=== PATIENT | male | born 1965 | race Caucasian/White ===

== ENCOUNTER 2017-01-06 18:19 | Inpatient (IN) | payer OTHER ==
[~2017-01-06] VITALS: Ht 170.2 cm; Wt 100.2 kg
--- NOTE | ~2017-01-06 | HC ---
[facility] [place] [address] CONSULTATION Name: ROMMEL STOCKTON Room #: 457-P [facility] [place] M.R.#: [id number] Admission: 01/06/17 Attend Phys: Wellington Clements MD Discharge: 01/09/17 Date of : 67 Report #: [id number] THIS REPORT FOR: //name// CC: PAXTON physician/PCP Wellington Clements PRIMARY CARE PHYSICIAN: None. REFERRAL PHYSICIAN: Leo Duarte M.D. REASON FOR REFERRAL: Pulmonary embolus, DVT. HISTORY OF PRESENT ILLNESS: The patient is a 51-year-old white male who presents to the Emergency Room with left leg pain, neck pain, and low back pain. Subsequent evaluation in the ER revealed pulmonary embolus along with pulmonary embolus along with DVT. A pulmonary consultation was requested. The patient states that he was diagnosed with DVT and pulmonary embolus about 4-5 years ago. He was treated at [facility]. This was not felt to be provoked. He states that he was given one year of anticoagulant therapy. About a year ago, he started to develop episodic bilateral lower extremity pain. About 6 months ago, he developed a swelling in his left leg. He did not seek medical evaluation. With his worsening symptoms, he presented to the ER on this occasion. The patient otherwise denies any recent long travels, trauma or surgery. He denies any family history of venothromboembolic disease. PAST MEDICAL HISTORY: Remarkable for diabetes mellitus type 2, hypertension, and alcohol abuse. PAST SURGICAL HISTORY: Includes cervical discectomy, carpal tunnel surgery on the right. ALLERGIES: None to medications. HOME MEDICATIONS: Include oxycodone, lisinopril, gabapentin, amlodipine, an additional list of medication according to the patient include Lovenox and warfarin. FAMILY HISTORY: Noncontributory. SOCIAL HISTORY: He drinks on a regular basis. He denies any tobacco use. [facility] [address] [place] [address] CONSULTATION Name: ROMMEL STOCKTON Room #: 457-P [facility] [place] [facility].#: [id number] Admission: 01/06/17 Attend Phys: Wellington Clements MD Discharge: 01/09/17 Date of : 67 Report #: [id number] REVIEW OF SYSTEMS: As mentioned above, otherwise 10-point system review negative. PHYSICAL EXAMINATION: GENERAL: He is awake, alert, in no distress. VITAL SIGNS: Temperature is 98.2 degrees Fahrenheit, pulse is 100, respiratory rate is 16, blood pressure 128/70 mmHg, saturation 97%. HEENT: Unremarkable. NECK: Supple without lymphadenopathy or thyromegaly. CHEST: Breath sounds are clear bilaterally without any rales or wheezes. CARDIOVASCULAR: Normal S1 and S2. There are no murmurs or gallop. There is no JVD. There is no carotid bruit. Pulses are 2+/4+ bilaterally. ABDOMEN: Soft, nontender, no organomegaly or masses felt. GENITOURINARY: Deferred. RECTAL: Deferred. EXTREMITIES: There is trace edema bilaterally, otherwise no cyanosis or clubbing. Leg Doppler ultrasound on the left leg revealed left femoral and popliteal DVT, urine drug screen was negative. CT chest angiogram shows small pulmonary embolus involving the right lower lobe area. Ultrasound on the right extremity was negative for DVT. MRI of the lower back reveals small central disk protrusion at the L4-L5 level with mild bilateral neural foraminal extension. MRI of the cervical spine shows fusion of the C5-C4 spine with degenerative changes below. Multilevel central canal stenosis and multilevel foraminal encroachment is noted. Sodium 133, potassium 2.3, chloride 92, CO2 is 34, BUN is 6, creatinine is normal. WBC 6700, platelets are normal. Albumin 2.4. IMPRESSION: 1. Pulmonary embolus involving the right lower lobe, left lower extremity DVT in this 51-year-old white male. According to the patient, he was diagnosed with PE and DVT about 4 years ago at [facility]. He denies any risk factors at this time. 2. Subacute bilateral lower extremity leg pain of undetermined etiology. I do not think it is related to DVT. 3. L4-L5 disk protrusion. 4. Hypertension. 5. Diabetes. RECOMMENDATION: Agree with anticoagulation. 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 Choice of oral anticoagulant can be either Coumadin or Pradaxa. [address] [address] CONSULTATION Name: MAHINROMMEL Christoph Room #: 457-P [facility] [place] M.R.#: [id number] Admission: 01/06/17 Attend Phys: Wellington Clements MD Discharge: 01/09/17 Date of : 67 Report #: [id number] Discussed with the patient the above findings and the rationale for treating his venothromboembolic disease. The patient voices understanding. Thank you for this consultation. <ELECTRONICALLY SIGNED> By: Brian Coy MD 01/10/17 1350 [id number] Brian Coy MD /nt
--- NOTE | ~2017-01-06 | EKG ---
[place] [address] [facility] [employer] [place] [address] ELECTROCARDIOGRAM REPORT Name: ROMMEL STOCKTON Christoph Room #: 457-P ADM IN M.R.#: [id number] Admission: 01/06/17 Attend Phys: Wellington Clements MD Discharge: Date of : 67 Report #: [id number] THIS REPORT FOR: //name// [facility] Test Date: 2017-01-06 Test Time: 22:34:38 Pat Name: ROMMEL STOCKTON Department: Room: 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 : 1965 Requested By: Suly Blair Order Number: [id number] MD: Darrell Nicole Measurements Intervals [place] Rate: 94 P: 14 FL: 136 QRS: 17 QRSD: 79 T: 31 QT: 434 QTc: 543 Interpretive Statements Sinus rhythm Nonspecific ST and T-wave abnormality Prolonged QT interval Baseline wander in lead(s) II,aVR Compared to ECG 07/16/2012 10:30:37 Nonspecific change in the ST and T-wave segments QT interval has lengthened Electronically Signed On 01-07-2017 8:05:12 CDT by Darrell Nicole [email or web address] <ELECTRONICALLY SIGNED> By: Darrell Nicole MD, [facility] 01/07/17 [id number] Darrell Nicole MD, [facility] /EPI
[~2017-01-06 18:19] MED LIST: ACETAMINOPHEN325 M1 PO; AMLODIPINE BESYL5 MG PO; COUMADIN 5 MG TA5 M1 PO; ENOXAPARIN100 MG/11 SUBQ; GABAPENTIN 100100 MG PO; GLUMETZA500 PO; LISINOPRIL10 MG PO; NOHOMEMEDICATIONS; ROXICODONE5 M1 PO
[2017-01-06 18:33] VITALS: BP 168/97
[2017-01-06 19:12] LABS: HEMATOCRIT 40.3 % (42.0-52.0); HEMOGLOBIN 14.7 gm/dL (14.0-18.0); MCH 40.1 pg (26.0-34.0); MCHC 36.4 g/dL (28.0-37.0); MCV 110.1 fL (80.0-100.0); PLATELET COUNT 132 thou/uL (150-400); RBC 3.66 mil/uL (4.50-6.00); RDW 16.3 % (10.5-14.5); WBC 6.6 thou/uL (4.0-11.0)
[2017-01-06 19:13] LABS: MANUAL DIFF YES
[2017-01-06 19:23] LABS: CALCIUM 8.1 mg/dL (8.5-10.1); CREATININE 1.1 mg/dL (0.7-1.3)
[2017-01-06 19:26] LABS: POTASSIUM 2.3 mmol/L (3.5-5.1)
[2017-01-06 19:48] LABS: ALBUMIN 3.2 g/dL (3.4-5.0); TOTAL PROTEIN 7.8 g/dL (6.4-8.2)
[2017-01-06 19:49] LABS: TOTAL CELL COUNT 100
[2017-01-06 19:50] LABS: ABSOLUTE NEUTROPHILS 4.5 thou/uL (1.4-8.2); ANISOCYTOSIS 1+; MACROCYTES 1+
[2017-01-06 20:12] LABS: URINE BILIRUBIN 3+ (Negative); URINE BLOOD 3+ (Negative); URINE COLOR BROWN; URINE GLUCOSE-RANDOM* 2+ (Negative); URINE KETONES 1+ (Negative); URINE LEUKOCYTES-REFLEX TRACE (Negative); URINE PROTEIN (DIPSTICK) 3+ (Negative); URINE SPECIFIC GRAVITY >= 1.030 (1.003-1.035); URINE UROBILINOGEN >= 8.0 E.U./dl (0.2-1.0)
[2017-01-06 20:20] LABS: AMP/METHAMP Negative (Negative); BARBITURATES Negative (Negative); BENZODIAZEPINES Negative (Negative); COCAINE Negative (Negative); METHADONE Negative (Negative); OPIATES Negative (Negative); PCP Negative (Negative); THC Negative (Negative)
[2017-01-06 20:21] LABS: ICTOTEST (BILI CONFIRMATORY) Negative (Negative)
[2017-01-06 20:24] LABS: HYALINE CASTS 0-3 Few /LPF (None Seen); SQUAMOUS 4-10 Moderate /LPF (0-3)
[2017-01-06 20:25] LABS: CRYSTALS None Seen /LPF (None Seen); URINE RBC 0-2 Rare /HPF (0-2); URINE WBC-REFLEX 0-5 Rare /HPF (0-5)
[2017-01-06 21:57] VITALS: BP 141/72
[2017-01-06 22:23] VITALS: BP 129/71
[2017-01-06 22:23] LABS: NT-PRO BRAIN NAT PEPTIDE 273 pg/mL (<300); TROPONIN-I < 0.04 ng/mL (<0.04-0.07)
[2017-01-06 22:25] LABS: MAGNESIUM 0.8 mg/dL (1.8-2.4)
[2017-01-07 02:59] VITALS: BP 101/61
[2017-01-07 05:10] VITALS: BP 144/89
[2017-01-07 05:26] LABS: HEMATOCRIT 33.8 % (42.0-52.0); MCH 40.7 pg (26.0-34.0); RBC 3.08 mil/uL (4.50-6.00); RDW 15.8 % (10.5-14.5); WBC 6.7 thou/uL (4.0-11.0)
[2017-01-07 05:31] LABS: HEMOGLOBIN 12.5 gm/dL (14.0-18.0)
[2017-01-07 05:56] LABS: ALBUMIN 2.4 g/dL (3.4-5.0); ALKALINE PHOSPHATASE 67 U/L (46-116); ANION GAP 7 mmol/L (7-16); BUN 6 mg/dL (7-18); CALCIUM 7.4 mg/dL (8.5-10.1); CHLORIDE 92 mmol/L (98-107); CHOLESTEROL 103 mg/dL (<200); CO2 34 mmol/L (21-32); GLUCOSE 152 mg/dL (74-106); HDL CHOLESTEROL 41 mg/dL (>40); LDL CHOLESTEROL 42 mg/dL (<100); MAGNESIUM 1.7 mg/dL (1.8-2.4); SGOT 37 U/L (15-37); SGPT 21 U/L (30-65); SODIUM 133 mmol/L (136-145); TC:HDL 2.5 Ratio (Not establshd); TOTAL BILIRUBIN 2.1 mg/dL (<0.1-1.0); TOTAL PROTEIN 6.4 g/dL (6.4-8.2); TRIGLYCERIDE 101 mg/dL (<150); VLDL 20 mg/dL (<40)
[2017-01-07 06:21] LABS: POTASSIUM 2.3 mmol/L (3.5-5.1)
[2017-01-07 08:24] VITALS: BP 121/73
[2017-01-07 12:39] VITALS: BP 115/69
[2017-01-07 13:40] LABS: MAGNESIUM 1.5 mg/dL (1.8-2.4)
[2017-01-07 13:42] LABS: POTASSIUM 2.9 mmol/L (3.5-5.1)
[2017-01-07 15:19] VITALS: BP 128/71
[2017-01-07 21:23] VITALS: BP 125/72
[2017-01-08 00:51] VITALS: BP 129/82
[2017-01-08 03:15] LABS: ABSOLUTE NEUTROPHILS 3.7 thou/uL (1.4-8.2); BASOPHILS 0.3 % (0.0-2.0); EOSINOPHILS 3.5 % (0.0-3.0); HEMATOCRIT 33.5 % (42.0-52.0); HEMOGLOBIN 12.2 gm/dL (14.0-18.0); LYMPHOCYTES 26.7 % (24.0-44.0); MCH 40.5 pg (26.0-34.0); MCHC 36.3 g/dL (28.0-37.0); MCV 111.6 fL (80.0-100.0); MONOCYTES 6.9 % (1.0-8.0); PLATELET COUNT 109 thou/uL (150-400); POLYS 62.6 % (36.0-66.0); RDW 15.9 % (10.5-14.5)
[2017-01-08 03:19] LABS: MANUAL DIFF NO
[2017-01-08 03:24] LABS: CALCIUM 7.4 mg/dL (8.5-10.1); CREATININE 0.7 mg/dL (0.7-1.3)
[2017-01-08 04:11] LABS: GLYCOHEMOGLOBIN (HGB A1C) 8.2 % (4.8-5.6)
[2017-01-08 06:36] LABS: INR 1.1; PROTIME 11.3 Seconds (9.3-11.4)
[2017-01-08 06:46] VITALS: BP 150/83
[2017-01-08 08:00] VITALS: BP 114/75
[2017-01-08 16:21] VITALS: BP 118/78
[2017-01-08 19:25] VITALS: BP 145/91
[2017-01-09 04:31] VITALS: BP 149/97
[2017-01-09 07:40] VITALS: BP 150/114
[2017-01-09 07:52] LABS: BASOPHILS 0.6 % (0.0-2.0); EOSINOPHILS 3.4 % (0.0-3.0); HEMATOCRIT 33.1 % (42.0-52.0); LYMPHOCYTES 29.2 % (24.0-44.0); MCH 40.9 pg (26.0-34.0); MCHC 36.3 g/dL (28.0-37.0); MCV 112.7 fL (80.0-100.0); MONOCYTES 8.8 % (1.0-8.0); PLATELET COUNT 111 thou/uL (150-400); RBC 2.93 mil/uL (4.50-6.00); RDW 15.9 % (10.5-14.5); WBC 5.2 thou/uL (4.0-11.0)
[2017-01-09 07:55] LABS: CALCIUM 7.5 mg/dL (8.5-10.1); CREATININE 0.6 mg/dL (0.7-1.3); MAGNESIUM 1.6 mg/dL (1.8-2.4)
[2017-01-09 08:19] LABS: MANUAL DIFF NO
[2017-01-09 10:58] LABS: POLYCHROMASIA OCCASIONAL
[2017-01-09 10:59] LABS: MACROCYTES 2+
[2017-01-09 11:28] VITALS: BP 138/90
[2017-01-09] MEDS ORDERED: GLIPIZIDE XL2.5 MG PO (15:10)
[2017-01-09] MEDS ORDERED: POTASSIUM20 PO (15:10)
[2017-01-09] MEDS ORDERED: OXYCODONE HCL 55 MG PO (15:10)
[2017-01-09] MEDS ORDERED: MAGNESIUM OXID400 MG PO (15:10)
[2017-01-09] MEDS ORDERED: XARELTO15 MG PO (15:10)
[2017-01-09] MEDS ORDERED: COZAAR 25 MG TA25 M1 PO (15:10)
[2017-01-09] MEDS ORDERED: XARELTO20 MG PO (15:11)
[2017-01-09 15:50] LABS: MAGNESIUM 1.5 mg/dL (1.8-2.4); POTASSIUM 3.8 mmol/L (3.5-5.1)
[2017-01-09 16:16] VITALS: BP 138/90
== END 2017-01-09 19:11 | disposition home or self-care (01) | DRG 299 ==
LOC: ER 18:19 → 4W 20:46 → EROBS 20:46 → 4W 22:06
PROVIDERS: Emergency Medicine; Internal Medicine; Nurse Practitioner Family
PROC: 02HV33Z Insertion of Infusion Device into Superior Vena Cava, Percutaneous Approach (ICD-10-PCS; principal; 2017-01-07)
PROC: B548ZZA Ultrasonography of Superior Vena Cava, Guidance (ICD-10-PCS; principal; 2017-01-07)
DX: I82.412 Acute embolism and thrombosis of left femoral vein (principal); I26.99 Other pulmonary embolism without acute cor pulmonale; N39.0 Urinary tract infection, site not specified; E87.1 Hypo-osmolality and hyponatremia; E11.9 Type 2 diabetes mellitus without complications; I10 Essential (primary) hypertension; E80.6 Other disorders of bilirubin metabolism; E87.6 Hypokalemia; M51.26 Other intervertebral disc displacement, lumbar region; M47.9 Spondylosis, unspecified; F17.210 Nicotine dependence, cigarettes, uncomplicated; R00.0 Tachycardia, unspecified; K80.80 Other cholelithiasis without obstruction; Z79.899 Other long term (current) drug therapy; Z79.01 Long term (current) use of anticoagulants
CPT/HCPCS: 10045; 27000

== ENCOUNTER 2017-04-07 12:44 | Inpatient (IN) | payer OTHER ==
[~2017-04-07] VITALS: Ht 170.2 cm; Wt 93.9 kg
--- NOTE | ~2017-04-07 | S ---
[facility] [place] [address] SURGICAL PATH RPT PROCEDURE Name: ROMMEL STOCKTON Room #: 440-P DIS IN M.R.#: [id number] Admission: 04/07/17 Date of : 67 Discharge: 04/10/17 Report #: [id number] Path Case #: [id number] PATHOLOGY REPORT COLLECTION DATE: 04/08/2017 RECEIVED DATE: 04/08/2017 SUBMITTING PHYS: Dr. Hardik Clifford OTHER PHYS: Dr. Alfredo Quezada SPECIMEN(S) RECEIVED: A.Ascending colon polyp x1 B.Polyp at hepatic spleenic flexure x1 C.Polyp at sigmoid x3 * * * * * * * * * * * * FINAL DIAGNOSIS: A. Colonic mucosa "ascending colon polyp x1": - Fragments of tubular adenoma. - There is no evidence of high-grade dysplasia or malignancy. B. Colonic mucosa "polyp at hepatic flexure": - Tubular adenoma. - There is no evidence of high-grade dysplasia or malignancy. C. Colonic mucosa "polyp at sigmoid x3": - Polypoid tubulovillous adenomas. - There is no evidence of high-grade dysplasia or malignancy. - See comment (WENDIE:trin[place]; 04/12/2017) COMMENT: This case was also reviewed by Dr. Jordyn Solomon. PATHOLOGIST: Feroz Malave M.D. REPORT ELECTRONICALLY SIGNED BY: Feroz Malave M.D. DATE/TIME: 04/12/2017 16:20 * * * * * * * * * * * * GROSS PATHOLOGY: A. Received in formalin labeled "Rommel Stockton, polypectomy at ascending colon," are five segments of galvan friable soft tissue measuring 1.2 x 1.2 x 0.4 cm in aggregate dimensions and ranging from 0.2 to 0.8 cm in maximum dimension. The specimen is submitted entirely in cassette A1. B. Received in formalin labeled "Rommel [place]ok[place], polyp at splenic flexure," are two segments of galvan soft tissue measuring 0.8 x 0.8 x 0.5 cm in aggregate dimensions and ranging from 0.5 to 0.[address] [address] SURGICAL PATH RPT PROCEDURE Name: ROMMEL STOCKTON Room #: 440-P DIS IN M.R.#: [id number] Admission: 04/07/17 Date of : 67 Discharge: 04/10/17 Report #: [id number] Path Case #: [id number] maximum dimension. The surgical margin of the larger segment is inked and the segment is bisected. The specimen is submitted entirely in cassette B1. C. The specimen is received are 3 containers formalin. The first container labeled "Rommel Stockton, polyp at sigmoid-1". Received is a polypoid segment of red-brown soft tissue measuring 1.8 x 1.7 x 1.3 cm in greatest dimensions. The surgical margin is inked and a segment is serially sectioned. The second container is labeled "Rommel Stockton, polyp at sigmoid-2". Received is a polypoid segment of red-brown measuring 2.3 x 1.8 x 1.3 cm with an attached stalk measuring 0.5 cm in length by 0.8 cm in diameter. The surgical margin is inked and the segment is serially sectioned. Also received in this container is an additional segment of light galvan to red-brown soft tissue measuring 0.8 cm in maximum dimensions. The third container is labeled "Rommel Stockton, polyp at sigmoid-3". Received are two segments of red-brown, polypoid-appearing soft tissue measuring 1.4 x 1.2 x 1.0 and 1.6 x 1.6 x 1.2 cm in greatest dimensions. The surgical margins are inked and each segment is trisected. The specimen is submitted entirely as follows: C1-C4 entire polyp from first container C5-C8 entire polyp from second container C9 separately submitted segment of soft tissue from second container C10-C11 smaller polyp from third container C12-C13 larger polyp from third container. (CAA; 04/08/2017) CLINICAL HISTORY: Pre-op diagnosis: Abdominal pain, GI bleed Post-op diagnosis: Diverticulosis, colon polyps, internal hemorrhoids INITIAL CPT CODE(S): A; 32535 B; 27610 C; 92886 Professional services performed by [facility] at [address], [place] [address] Technical services performed by [facility] at [address] [place] [address], [address], [place] [address]. [facility] [address] [address] SURGICAL PATH RPT PROCEDURE Name: ROMMEL STOCKTON Room #: 440-P DIS IN M.R.#: [id number] Admission: 04/07/17 Date of : 67 Discharge: 04/10/17 Report #: [id number] Path Case #: [id number] PHONE: [phone] DIRECTOR: Saud Ngo M.D. * * * END OF REPORT * * *
--- NOTE | ~2017-04-07 | EKG ---
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 : 1965 Requested By: Waldemar Priest Order Number: [id number] MD: Darrell Nicole Measurements Intervals [place] Rate: 90 P: 30 AL: 120 QRS: 0 QRSD: 106 T: -32 QT: 405 QTc: 496 Interpretive Statements Sinus rhythm Atrial premature complex Nonspecific ST segment abnormality Compared to ECG 01/06/2017 22:34:38 Atrial premature complex(es) now present Electronically Signed On 04-08-2017 8:37:23 CDT by Darrell Nicole [email or web address] <ELECTRONICALLY SIGNED> By: Darrell Nicole MD, [facility] 04/08/17 0837 [id number] [id number] Darrell Nicole MD, [facility] /EPI
[~2017-04-07 12:44] MED LIST changes: +COZAAR 25 MG TA25 M1 PO; +GLIPIZIDE XL2.5 MG PO; +MAGNESIUM OXID400 MG PO; +OXYCODONE HCL 55 MG PO; +POTASSIUM20 PO; +XARELTO15 MG PO; +XARELTO20 MG PO
[2017-04-07 13:00] VITALS: BP 110/77
[2017-04-07 13:59] LABS: HEMATOCRIT 40.9 % (42.0-52.0); HEMOGLOBIN 15.1 gm/dL (14.0-18.0); MCH 41.1 pg (26.0-34.0); MCHC 36.8 g/dL (28.0-37.0); MCV 111.6 fL (80.0-100.0); PLATELET COUNT 179 thou/uL (150-400); RBC 3.67 mil/uL (4.50-6.00); RDW 15.3 % (10.5-14.5); WBC 10.8 thou/uL (4.0-11.0)
[2017-04-07 14:02] LABS: MANUAL DIFF YES
[2017-04-07 14:17] LABS: ANION GAP 12 mmol/L (7-16); BUN 5 mg/dL (7-18); CALCIUM 8.6 mg/dL (8.5-10.1); CHLORIDE 89 mmol/L (98-107); CO2 30 mmol/L (21-32); CREATININE 1.3 mg/dL (0.7-1.3); GLUCOSE 202 mg/dL (74-106); SODIUM 131 mmol/L (136-145)
[2017-04-07 14:20] LABS: APTT 26.1 Seconds (24.5-32.8); INR 1.2; PROTIME 11.9 Seconds (9.3-11.4)
[2017-04-07 14:22] LABS: POTASSIUM 2.1 mmol/L (3.5-5.1)
[2017-04-07 14:25] LABS: TROPONIN-I < 0.04 ng/mL (<0.04-0.07)
[2017-04-07 14:31] LABS: ABSOLUTE NEUTROPHILS 7.9 thou/uL (1.4-8.2); MACROCYTES 1+; TOTAL CELL COUNT 100
[2017-04-07 14:50] LABS: DIRECT BILIRUBIN 0.5 mg/dL (<0.1-0.3); TOTAL BILIRUBIN 2.1 mg/dL (<0.1-1.0); TOTAL PROTEIN 7.7 g/dL (6.4-8.2)
[2017-04-07 14:52] LABS: MAGNESIUM 0.8 mg/dL (1.8-2.4)
[2017-04-07 15:32] VITALS: BP 134/68
[2017-04-07 15:47] VITALS: BP 138/88
[2017-04-07 16:50] VITALS: BP 93/60
[2017-04-07 18:48] LABS: CALCIUM 8.4 mg/dL (8.5-10.1); CREATININE 0.9 mg/dL (0.7-1.3); MAGNESIUM 1.4 mg/dL (1.8-2.4)
[2017-04-07 18:51] LABS: POTASSIUM 2.5 mmol/L (3.5-5.1)
[2017-04-07 19:26] VITALS: BP 96/60
[2017-04-07 20:24] LABS: HEMOGLOBIN 14.9 gm/dL (14.0-18.0)
[2017-04-07 21:58] VITALS: BP 101/66
[2017-04-08 02:52] LABS: HEMATOCRIT 36.6 % (42.0-52.0); MCHC 35.3 g/dL (28.0-37.0); MCV 113.6 fL (80.0-100.0); RBC 3.22 mil/uL (4.50-6.00); RDW 15.1 % (10.5-14.5); WBC 8.2 thou/uL (4.0-11.0)
[2017-04-08 02:53] LABS: HEMOGLOBIN 12.9 gm/dL (14.0-18.0)
[2017-04-08 03:05] LABS: CALCIUM 7.9 mg/dL (8.5-10.1); CREATININE 1.2 mg/dL (0.7-1.3); MAGNESIUM 1.5 mg/dL (1.8-2.4)
[2017-04-08 03:08] LABS: POTASSIUM 2.2 mmol/L (3.5-5.1)
[2017-04-08 04:09] VITALS: BP 139/77
[2017-04-08 10:46] VITALS: BP 150/85
[2017-04-08 12:21] LABS: HEMATOCRIT 35.1 % (42.0-52.0); HEMOGLOBIN 12.5 gm/dL (14.0-18.0)
[2017-04-08 16:00] VITALS: BP 121/62
[2017-04-08 16:08] LABS: HEPATITIS C VIRUS AB 0.1 (0.0-0.9)
[2017-04-08 19:27] VITALS: BP 129/72
[2017-04-08 19:32] LABS: MAGNESIUM 1.4 mg/dL (1.8-2.4)
[2017-04-08 19:35] LABS: POTASSIUM 2.7 mmol/L (3.5-5.1)
[2017-04-09 04:20] VITALS: BP 124/71
[2017-04-09 08:00] VITALS: BP 133/77
[2017-04-09] MEDS ORDERED: ANUCORT-HC25 MG RECTAL (09:41)
[2017-04-09] MEDS ORDERED: VITAMIN B-1100 M1 PO (09:41)
[2017-04-09] MEDS ORDERED: FOLIC ACID1 MG PO (09:41)
[2017-04-09 12:02] VITALS: BP 133/77
[2017-04-09 16:00] VITALS: BP 139/77
[2017-04-09 22:00] LABS: MAGNESIUM 1.9 mg/dL (1.8-2.4); POTASSIUM 3.6 mmol/L (3.5-5.1)
[2017-04-09 22:41] VITALS: BP 144/81
[2017-04-10 04:00] VITALS: BP 146/84
[2017-04-10 07:32] VITALS: BP 152/82
[2017-04-10 09:08] VITALS: BP 133/77
[2017-04-10 09:20] VITALS: BP 133/77
[2017-04-10 10:22] VITALS: BP 133/77
== END 2017-04-10 10:23 | disposition home or self-care (01) | DRG 394 ==
LOC: ER 12:44 → 4S 14:57 → EROBS 14:57 → 4S 16:05
PROVIDERS: Emergency Medicine; Family Medicine; Internal Medicine Gastroenterology; Nurse Practitioner
PROC: 0DBK8ZZ Excision of Ascending Colon, Via Natural or Artificial Opening Endoscopic (ICD-10-PCS; principal; 2017-04-08)
PROC: 0DBN8ZZ Excision of Sigmoid Colon, Via Natural or Artificial Opening Endoscopic (ICD-10-PCS; principal; 2017-04-08)
DX: K64.8 Other hemorrhoids (principal); E44.1 Mild protein-calorie malnutrition; E87.6 Hypokalemia; E83.42 Hypomagnesemia; E11.9 Type 2 diabetes mellitus without complications; I10 Essential (primary) hypertension; F17.210 Nicotine dependence, cigarettes, uncomplicated; K80.20 Calculus of gallbladder without cholecystitis without obstruction; N28.89 Other specified disorders of kidney and ureter; E27.8 Other specified disorders of adrenal gland; K57.90 Diverticulosis of intestine, part unspecified, without perforation or abscess without bleeding; D12.5 Benign neoplasm of sigmoid colon; D12.2 Benign neoplasm of ascending colon; F10.10 Alcohol abuse, uncomplicated; Z71.6 Tobacco abuse counseling; Z86.718 Personal history of other venous thrombosis and embolism; Z79.899 Other long term (current) drug therapy; Z79.01 Long term (current) use of anticoagulants
CPT/HCPCS: 10100; 62110; 62900; 70005

== ENCOUNTER → 2017-05-02 | Outpatient (CLI) | payer OTHER ==
[~2017-05-02] MED LIST changes: +ANUCORT-HC25 MG RECTAL; +FOLIC ACID1 MG PO; +VITAMIN B-1100 M1 PO
== END ==
LOC: CAT 07:41 → ULTRA 07:45 → LABMALL 09:58
DX: Z12.11 Encounter for screening for malignant neoplasm of colon (principal); R51 Headache; R42 Dizziness and giddiness; Z86.39 Personal history of other endocrine, nutritional and metabolic disease